=== PATIENT | male | born 1975 | race Hispanic/Latino ===

== ENCOUNTER 2019-10-31 11:08 | Emergency (ER) | payer SELFPAY ==
[~2019-10-31] VITALS: Ht 167.6 cm; Wt 65.0 kg
[2019-10-31 13:00] VITALS: BP 139/79
== END 2019-10-31 13:00 | disposition home or self-care (01) | DRG 103 ==
LOC: ED 11:08
DX: R51 Headache (principal); Z20.828 Contact with and (suspected) exposure to other viral communicable diseases

== ENCOUNTER 2021-02-09 09:57 | Emergency (ER) | payer SELFPAY ==
[~2021-02-09] VITALS: Ht 167.6 cm; Wt 81.8 kg
[2021-02-09 10:31] LABS: URINE BILIRUBIN - DIPSTICK NEGATIVE (NEGATIVE); URINE BLOOD DIPSTICK SMALL (NEGATIVE); URINE COLOR YELLOW; URINE GLUCOSE - DIPSTICK NEGATIVE (NEGATIVE); URINE KETONE NEGATIVE (NEGATIVE); URINE PROTEIN - DIPSTICK TRACE mg/dL (NEG-TRACE); URINE SPECIFIC GRAVITY 1.025; URINE UROBILINOGEN - DIPSTICK 0.2 E.U./dL (0.2)
[2021-02-09 10:32] LABS: URINE LEUK ESTERASE MODERATE (NEGATIVE); URINE NITRITE - DIPSTICK NEGATIVE (Negative)
[2021-02-09 10:33] LABS: URINE BACTERIA FEW hpf; URINE EPITHELIAL CELLS FEW EPI/hpf (0-FEW); URINE WBC 20-50 WBC/hpf (0-5)
[2021-02-09] MEDS ORDERED: BACTRIM DS1 TAB PO (10:42)
[2021-02-09] MEDS ORDERED: PYRIDIUM200 MG PO (10:42)
[2021-02-09 10:58] VITALS: BP 148/86
== END 2021-02-09 10:58 | disposition home or self-care (01) | DRG 690 ==
LOC: ED 09:57
DX: N39.0 Urinary tract infection, site not specified (principal)

== ENCOUNTER 2021-02-22 17:12 | Emergency (ER) | payer SELFPAY ==
[~2021-02-22] VITALS: Ht 167.6 cm; Wt 68.0 kg
[~2021-02-22 17:12] MED LIST: BACTRIM DS1 TAB PO; PYRIDIUM200 MG PO
[2021-02-22 17:59] LABS: URINE BILIRUBIN - DIPSTICK NEGATIVE (NEGATIVE); URINE BLOOD DIPSTICK SMALL (NEGATIVE); URINE COLOR YELLOW; URINE GLUCOSE - DIPSTICK NEGATIVE (NEGATIVE); URINE KETONE NEGATIVE (NEGATIVE); URINE LEUK ESTERASE SMALL (NEGATIVE); URINE NITRITE - DIPSTICK NEGATIVE (Negative); URINE PH 5.5 (4.5-8.0); URINE PROTEIN - DIPSTICK TRACE mg/dL (NEG-TRACE); URINE SPECIFIC GRAVITY >=1.030; URINE UROBILINOGEN - DIPSTICK 0.2 E.U./dL (0.2)
[2021-02-22 18:05] LABS: URINE WBC >100 WBC/hpf (0-5)
[2021-02-22] MEDS ORDERED: DOXYCYCLINE100 MG PO (18:46)
[2021-02-22 19:13] VITALS: BP 132/75
== END 2021-02-22 19:22 | disposition home or self-care (01) | DRG 728 ==
LOC: ED 17:12
DX: A64 Unspecified sexually transmitted disease (principal)